=== PATIENT | male | born 1935 | race Caucasian/White ===

== ENCOUNTER 2023-03-03 12:07 | Outpatient (AMB) | payer MEDICARE, SELFPAY ==
--- NOTE | 2023-03-03 12:15 | HO.NEPHOV ---
HPI HPI Comments History of Present Illness Details I had the privilege of seeing Andrea Swanson in follow-up of his chronic kidney disease. He is not on any BRUCE inhibitor, ARB or Farxiga. He avoids nonsteroidal anti-inflammatory medications. His urine output is good. He does not have any dizziness, orthostatic symptoms, chest pain, shortness for breath, nausea, vomiting, diarrhea or pedal edema. His renal functions had been stable. [facility] Medical History (Updated 03/03/23 @ 12:43 by Rusty Vali MD) Anemia due to chronic kidney disease Chronic kidney disease, stage 4 (severe) Social History (Updated 03/03/23 @ 12:24 by Alma Nam MA) Patient Tobacco Use Status: Former Tobacco user Vital Signs 03/03/23 12:16 Height 5 ft 9 in Weight 157 lb BMI 23.2 BP 124/80 Blood Pressure Location Lt brachial Position Sitting Pulse 69 Pulse Source Pulse Oximeter Physical Exam Vital Signs: Last Vital Signs Pulse 69 03/03/23 12:16 BP 124/80 03/03/23 12:16 BMI result Body Mass Index 23.2 Const General: comfortable and no acute distress Orientation/consciousness: patient oriented x3 HEENT Head: Yes normocephalic Mouth: Normal oral and palatal mucosa present Eyes EOM: EOMs intact bilaterally Neck Neck: Yes supple Resp Auscultation: clear to auscultation bilaterally Cardio Jugular venous distension: no JVD Rate: regular rate Heart sounds: Murmur heart sound present GI Palpation (GI): Soft to palpation Auscultation: normal bowel sounds General: Yes no CVA tenderness Back/Spine/Pelvis Back: no CVA tenderness Skin General skin exam: no rashes or lesions noted Neuro General: patient oriented x3 and moves all extremities Extrem General: Yes no pedal edema Assessment & Plan Assessment & Plan (1) Chronic kidney disease, stage 4 (severe): Code(s): N18.4 - Chronic kidney disease, stage 4 (severe) Plan Andrea Swanson has chronic kidney disease for long time. He had been investigated. He maintains good hydration. His blood pressure is at goal. He does not have any hypervolemia. He is not on any BRUCE inhibitor, ARB or Farxiga. I ordered urine protein creatinine ratio, serum calcium and repeat renal functions. I shall consider initiating him on low-dose ARB and/or Farxiga with time. He should remain well hydrated. I did not make any medication changes today. All his questions were answered. Follow-up was given. Follow-up lab work was ordered. Time spent discussing CKD, etiologies, management strategies, documentation and under treatment of data 24 minutes. Orders: Orders Creatinine 03/03/23 N18.4 - Chronic kidney disease, stage 4 (severe) Calcium 03/03/23 N18.4 - Chronic kidney disease, stage 4 (severe) Protein Creatinine Ratio, Ur 03/03/23 N18.4 - Chronic kidney disease, stage 4 (severe) Electrolytes 03/03/23 N18.4 - Chronic kidney disease, stage 4 (severe) Blood Urea Nitrogen 03/03/23 N18.4 - Chronic kidney disease, stage 4 (severe) Coding Level of Care Code Est Pt Level 3 (09453) Diagnoses Chronic kidney disease, stage 4 (severe) N18.4
[2023-03-03 12:16] VITALS: BP 124/80; PULSE 69; BMI 23.2
== END 2023-03-03 12:48 | disposition home or self-care (01) ==
PROVIDERS: PCP Internal Medicine; Visit Provider Internal Medicine Nephrology
DX: N18.4 Chronic kidney disease, stage 4 (severe) (principal)
CPT/HCPCS: 99213

== ENCOUNTER → 2023-03-03 12:07 | Outpatient (BNVA) | payer MEDICARE, SELFPAY | PROVIDERS: PCP Internal Medicine; Visit Provider Internal Medicine Nephrology | DX: N18.4 Chronic kidney disease, stage 4 (severe) (principal) | CPT/HCPCS: 99212 ==